=== PATIENT | male | born 1965 | race American Indian/Alaskan Native ===

== ENCOUNTER 2016-11-26 22:19 | Emergency (ER) | payer SELFPAY ==
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
[2016-11-26] MEDS ORDERED: VITAMIN B-1 100 MG, FOLVITE 1 MG, INFUVITE 10 ML, MAGNESIUM SULFATE 2 GM in NACL 0.9% 1... IV ONE (23:00)
[2016-11-26 23:26] LABS: Basophils % (Auto) 1.6 % (0.0-1.8); Eosinophils % (Auto) 1.8 % (0.0-4.3); Hematocrit 44.8 % (35.5-45.6); Hemoglobin 15.4 gm/dl (11.8-15.2); Mean Corpuscular HGB Conc 34 % (32-34); Mean Corpuscular Hemoglobin 33 pg (28-32); Mean Corpuscular Volume 96 fl (84-94); Platelet Count 236 K/mm3 (140-440); Red Blood Count 4.69 M/mm3 (3.65-5.03); Red Cell Distribution Width 12.9 % (13.2-15.2); White Blood Count 10.6 K/mm3 (4.5-11.0)
[2016-11-26 23:40] LABS: Creatine Kinase MB 5.1 ng/mL (0.0-4.0)
[2016-11-26 23:43] LABS: Alanine Aminotransferase 19 units/L (7-56); Albumin 4.2 g/dL (3.9-5); Albumin/Globulin Ratio 1.2 %; Alkaline Phosphatase 88 units/L (35-129); BUN/Creatinine Ratio 12.22; Bilirubin,Total < 0.2 mg/dL (0.1-1.2); Blood Urea Nitrogen 11 mg/dL (9-20); Calcium 8.8 mg/dL (8.4-10.2); Carbon Dioxide 21 mmol/L (22-30); Chloride 99.3 mmol/L (98-107); Creatine Kinase 363 units/L (55-170); Glucose 150 mg/dL (75-100); Potassium 3.5 mmol/L (3.6-5.0); Sodium 138 mmol/L (137-145); Total Protein 7.6 g/dL (6.3-8.2)
[2016-11-26 23:48] LABS: Anion Gap 21 mmol/L
[2016-11-27 01:11] LABS: Urine Drugs of Abuse Note Disclamer
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
[2016-11-27 09:34] VITALS: BP 130/76
== END 2016-11-27 09:35 | disposition home or self-care (01) ==
LOC: ED 22:19
DX: F10.129 Alcohol abuse with intoxication, unspecified (principal); I10 Essential (primary) hypertension; F17.200 Nicotine dependence, unspecified, uncomplicated
CPT/HCPCS: 36415; 70450; 80053; 80307; 82550; 82553; 84484; 85025; 93005; 93010; 96365; 96366; 99284; G0480; J3411; J3475; J7030; 80320; 96374

== ENCOUNTER 2020-09-19 09:27 | Day surgery (SDC) | payer OTHER ==
[~2020-09-19 09:27] MED LIST: SODIUM CHLORIDE 0.9% 1000 ML 1,000 ML IV SCH
--- NOTE | 2020-09-19 10:44 | Anesthesia Day of Surgery ---
Anesthesia Day of Surgery - Day of Surgery Patient Examined: Yes Patient H&P Reviewed: Yes Patient is NPO: Yes
--- NOTE | 2020-09-19 10:45 | Anesthesia Consultation ---
Anesthesia Consult and Med Hx Date of service: 09/19/20 - Airway Anesthetic Teeth Evaluation: Chipped ROM Head & Neck: Adequate Mental/Hyoid Distance: Adequate Mallampati Class: Class II Intubation Access Assessment: Good - Pre-Operative Health Status ASA Pre-Surgery Classification: ASA2 Proposed Anesthetic Plan: MAC - Pulmonary Hx Smoking: Yes Hx Respiratory Symptoms: No (+2FS) - Cardiovascular System Hx Hypertension: Yes - Gastrointestinal Hx Gastroesophageal Reflux Disease: No - Endocrine Hx Renal Disease: No Hx Non-Insulin Dependent Diabetes: No - Hematic Hx Sickle Cell Disease: No - Other Systems Hx Alcohol Use: Yes Hx Obesity: Yes
[2020-09-19] MEDS ORDERED: fentaNYL 100 MCG/2 ML INJ ONE (11:09)
[2020-09-19] MEDS ORDERED: propofoL 200 MG/20 ML VIAL IV ONE ×2 (11:09→11:24)
[2020-09-19] MEDS ORDERED: LIDOCAINE MPF (2%) 20 MG/1 ML VIAL 5 ML ONE ×2 (11:10)
--- NOTE | 2020-09-19 11:52 | Procedure Note ---
Date of procedure: 09/19/20 Pre-op diagnosis: Abdominal Pain/ Colon Polyp Screening Post-op diagnosis: other (Moderate,Erosive Esophagitis/ Gastritis/Duodenitis (Bulb)/Moderate, Left Colon Diverticuli/Minor,Internal Hemorrhoid/ No Colon Polyps noted) Procedure: EGD with biopsy and Colonoscopy Anesthesia: [facility] [place] Surgeon: LUPIS GAONA Estimated blood loss: minimal Pathology: list Specimen disposition: to lab Condition: stable Disposition: same day (Encourage fiber intake; treat with PPI. Avoid aspirin and NSAID for 5 days, otherwise resume home medication and follow up in 1 to 2 weeks ([phone]).)
--- NOTE | 2020-09-19 12:15 | Operative Report ---
PROCEDURE: Esophagogastroduodenoscopy with biopsy. INDICATIONS: This is a 54-year-old -[place] Citizen gentleman who has a history of tobacco and alcohol use, and recently had an acute attack of pancreatitis, which has since resolved. He has been having abdominal pain. EGD was done to make sure there was not any significant upper GI pathology present. He is also to have a colonoscopy done as part of colon polyp screening. DESCRIPTION OF PROCEDURE: EGD was done after getting informed consent with MAC anesthesia. Instrument was passed through the hypopharynx into the esophagus, which showed moderate erosive esophagitis. Stomach showed gastritis. Biopsy was done from the gastric antrum, gastric body and angular incisura to rule out for H. pylori and atrophic gastritis. Additional biopsy was done from the distal esophagus to assess for erosive esophagitis. The pylorus was patent. The duodenum in the first and the second portion showed a duodenitis in the bulb, which was mild; second part appeared normal. There was minimal bleeding from the biopsy sites. No complications associated with the procedure. ASSESSMENT: Abdominal pain, moderate erosive esophagitis, gastritis, duodenitis. PLAN: To treat the patient with PPI, have the patient avoid aspirin and aspirin-related products and follow up in the office in 1-2 weeks' time. A colonoscopy will be done also as part of colon polyp screening. Procedure was done in the GI lab with assistance of the GI lab team, which included SWAPNIL Ye; liz Macedo and with assistance of anesthesia. JOB# [id number] ELIZABETH/TRISHA
--- NOTE | 2020-09-19 12:17 | Operative Report ---
PROCEDURE: Colonoscopy. INDICATIONS: He also had an EGD done prior to the colonoscopy, which showed moderate erosive esophagitis, gastritis and duodenitis, but no peptic ulcer disease. Colonoscopy was done as part of colon polyp screening. DESCRIPTION OF PROCEDURE: Initial rectal exam was unremarkable. Instrument was passed through the rectum onto the cecum, which was identified with ileocecal valve and appendiceal orifice. Visualization was fair to good. Cecum, ascending colon, transverse colon showed normal mucosa. There was moderate diverticular disease with some deep diverticuli noted in the left colon and the rectum showed some minor internal hemorrhoid. ASSESSMENT: Colon polyp screening, no colon polyps noted. Moderate left colon diverticuli, minor internal hemorrhoid. Plan is to encourage fiber supplements and treat the patient with PPI, have the patient avoid aspirin and aspirin-related products and follow up in the office in 1-2 weeks' time. Procedure was done in the GI lab with assistance of the GI lab team, which included [place]; SWAPNIL Ye and with assistance of anesthesia. JOB# [id number] ELIZABETH/TRISHA
--- NOTE | 2020-09-19 12:27 | Post Anesthesia Evaluation ---
- Post Anesthesia Evaluation Patient Participated: Yes Airway Patent: Yes Stable Respiratory Function: Yes Nausea/Vomiting: No Temp > 96.8F: Yes Pain Manageable: Yes Adequeate Hydration: Yes Anesthesia Complications: No Block Receding Appropriately: Not Applicable Patient on Ventilator: No
[2020-09-19 12:58] VITALS: BP 136/75
== END 2020-09-19 12:55 | disposition home or self-care (01) ==
LOC: GIO 09:27
DX: R10.9 Unspecified abdominal pain (principal); K29.70 Gastritis, unspecified, without bleeding; K21.00 Gastro-esophageal reflux disease with esophagitis, without bleeding; K29.80 Duodenitis without bleeding; K57.30 Diverticulosis of large intestine without perforation or abscess without bleeding; K64.8 Other hemorrhoids; F17.210 Nicotine dependence, cigarettes, uncomplicated; I10 Essential (primary) hypertension; E78.00 Pure hypercholesterolemia, unspecified; E66.9 Obesity, unspecified; Z72.89 Other problems related to lifestyle; Z79.899 Other long term (current) drug therapy; Z98.890 Other specified postprocedural states; Z68.32 Body mass index [BMI] 32.0-32.9, adult
CPT/HCPCS: 43239; 45378; 88305; 88342; J2704; J3010; J7030

== ENCOUNTER 2021-10-23 08:11 | Day surgery (SDC) | payer OTHER ==
--- NOTE | 2021-10-23 09:16 | Anesthesia Day of Surgery ---
Anesthesia Day of Surgery - Day of Surgery Patient Examined: Yes Patient H&P Reviewed: Yes Patient is NPO: Yes
--- NOTE | 2021-10-23 09:16 | Anesthesia Consultation ---
Anesthesia Consult and Med Hx Date of service: 10/23/21 - Airway Anesthetic Teeth Evaluation: Good ROM Head & Neck: Adequate Mental/Hyoid Distance: Adequate Mallampati Class: Class II Intubation Access Assessment: Good - Pulmonary Exam CTA: Yes - Cardiac Exam Cardiac Exam: RRR - Pre-Operative Health Status ASA Pre-Surgery Classification: ASA2 Proposed Anesthetic Plan: MAC - Pulmonary Hx Smoking: Yes (1/2 ppd) Hx Respiratory Symptoms: No (+2FS) COPD: Yes (no meds) Hx Sleep Apnea: No - Cardiovascular System Hx Hypertension: Yes (HLD) Hx Coronary Artery Disease: No - Central Nervous System Hx Neuromuscular Disorder: No - Gastrointestinal Hx Gastroesophageal Reflux Disease: No (chronic pancreatitis) - Endocrine Hx Renal Disease: No Hx Liver Disease: No Hx Non-Insulin Dependent Diabetes: No - Hematic Hx Anemia: No Hx Sickle Cell Disease: No - Other Systems Hx Alcohol Use: Yes Hx Substance Use: No Hx Cancer: No Hx Obesity: Yes (BMI 33) - Additional Comments Anesthesia Medical History Comments: No hx of anesthesia complications
[2021-10-23] MEDS ORDERED: propofoL 200 MG/20 ML VIAL IV ONE ×3 (10:11→10:42)
--- NOTE | 2021-10-23 11:20 | Procedure Note ---
Date of procedure: 10/23/21 Pre-op diagnosis: GI Bleeding/ H/O Pancreatitis Post-op diagnosis: other (Multiple,Small Gastric Ulcers and Gastric Erosion/ Gastritis/Esophagitis/Two,Sigmoid Polyps (removed by Hot snare polypectomy)/ Moderate, Deep Left Colon Diverticular disease) Procedure: EGD with Biopsy and Colonoscopy with Hot Snare Polypectomy Anesthesia: [facility] [place] Surgeon: LUPIS GAONA Estimated blood loss: minimal Pathology: list Specimen disposition: to lab Condition: stable Disposition: same day (Treat with PPI and encourage fiber intake and advice patient to avoid smoking and alcohol use. Avoid aspirin and NSAID for 4 days; otherwise resume home medication and F/U in 1 to 2 weeks ([phone]).)
--- NOTE | 2021-10-23 11:41 | Operative Report ---
DATE OF SURGERY: 10/23/2021 PROCEDURE PERFORMED: EGD with biopsy. INDICATIONS: The patient is a 55-year-old -[place] gentleman, who had a severe history of alcohol use as well as tobacco use and had multiple attacks of acute pancreatitis. He has since given of drinking alcohol, but continues to smoke and has been having some GI bleeding. EGD was done to make sure there was not any significant upper GI pathology that would account for the patient's bleeding. DESCRIPTION OF PROCEDURE: Procedure was done after getting informed consent with MAC anesthesia. The instrument was passed through the hypopharynx into the esophagus, which showed mild to moderate erosive esophagitis. Photodocumentation and biopsy was obtained from the distal esophagus to assess for the severity of the erosive esophagitis. The stomach showed multiple small gastric ulcers and gastric erosions in the antrum. The pylorus was patent. The duodenum in the first and second portion appeared normal. There was no ulcer within the duodenal lumen. No blood within the duodenal lumen. Biopsy was done from the second part of the duodenum to rule out for possible celiac disease. Additional biopsy was done from the gastric antrum from the area of the ulceration in the gastric erosion as well as from the angle incisura and the gastric body to assess for H. pylori and to assess for the gastric ulcers. There was minimal bleeding associated with the procedure after taking biopsies. ASSESSMENT: Gastrointestinal bleeding. Multiple small shallow gastric ulcers, gastric erosions in the antrum, gastritis, [id number] distal erosive esophagitis, rule out celiac disease. PLAN: Treat the patient with PPI, have the patient avoid aspirin and aspirin-related products for the next 4 days, otherwise resume home medication. Advised the patient to refrain from smoking and a colonoscopy will also be done for further assessment of the source of the bleeding. Procedure was done in the GI lab with assistance of the GI lab team, which included the GI nurse, the cytopathology technologist and with assistance of anesthesia. TID: [id number] RECEIPT: [id number] ELIZABETH/PATT
--- NOTE | 2021-10-23 11:53 | Operative Report ---
DATE OF SURGERY: 10/23/2021 PROCEDURE: Colonoscopy with hot snare polypectomy. INDICATIONS: This is a 55-year-old -[place] gentleman who has a prior history of multiple attacks of acute pancreatitis, history of tobacco and alcohol use, though he states that he has recently given up drinking alcohol. EGD to assess for GI bleeding had shown presence of multiple small shallow gastric ulcers, gastric erosion as well as erosive esophagitis. Colonoscopy was done to make sure there was not any significant lower GI pathology present. DESCRIPTION OF PROCEDURE: Procedure was done after getting informed consent with MAC anesthesia. Initial rectal examination was unremarkable. The instrument was passed through the rectum onto the cecum, which was identified by the ileocecal valve and appendiceal orifice. Visualization was fair. Cecum, ascending colon and transverse colon showed normal mucosa. There were multiple deep diverticula noted in the left colon. In the distal sigmoid, there were 2 polyps noted one 14 and another about 15 mm in diameter. Both were removed by using snare excision and application of heat. There was minimal bleeding from the polypectomy site and the rectum showed some minor internal hemorrhoid on the retroverted view. ASSESSMENT: History of gastrointestinal bleeding, two sigmoid polyps removed by hot snare polypectomy, multiple deep diverticular disease noted in the left colon, minor internal hemorrhoid. Visualization was fair. PLAN: To encourage the patient to take fiber supplements. Treat the patient with PPI because of the EGD findings of gastric ulcer and gastritis, have the patient resume home medication. Follow up in the office in 1-2 weeks' time. Procedure was done in the GI lab with assistance of the GI lab team, which included the GI nurse, the technology coach and with the assistance of anesthesia. TID: [id number] RECEIPT: [id number] KJ/TAB
[2021-10-23 12:49] VITALS: BP 116/78
== END 2021-10-23 11:30 | disposition home or self-care (01) ==
LOC: GIO 08:11 → EDSTATUS 11:30 → GIO 11:30
DX: K29.60 Other gastritis without bleeding (principal); D12.5 Benign neoplasm of sigmoid colon; K57.30 Diverticulosis of large intestine without perforation or abscess without bleeding; K64.8 Other hemorrhoids; K25.9 Gastric ulcer, unspecified as acute or chronic, without hemorrhage or perforation; K20.90 Esophagitis, unspecified without bleeding; K86.1 Other chronic pancreatitis; I10 Essential (primary) hypertension; J44.9 Chronic obstructive pulmonary disease, unspecified; F17.210 Nicotine dependence, cigarettes, uncomplicated; Z79.899 Other long term (current) drug therapy; Z98.890 Other specified postprocedural states
CPT/HCPCS: 43239; 45385; 88305; 88342; J2704; J7030; J7120; Q0162